=== PATIENT | male | born 1960 | race African-American/Black ===

== ENCOUNTER 2021-03-04 11:24 | Inpatient (IN) | payer MEDICARE, MEDICAID ==
[~2021-03-04] VITALS: Ht 182.9 cm; Wt 98.9 kg
[2021-03-04] MEDS ORDERED: LEVETIRACETAM 500 MG in SODIUM CHLORIDE 0.9% 100 ML IV STA (12:09)
[2021-03-04 12:11] LABS: BG BASE EXCESS -7.7 mmol/L (-2.0-2.0); BG CARBOXYHEMOGLOBIN 0.3 % (0.5-1.5); BG HCO3 ACT 18.5 mmol/L (22.0-26.0); BG METHEMOGLOBIN 0.1 % (0.0-1.5); BG OXYHEMOGLOBIN 98.6 % (94.0-97.0); BG PCO2 39.9 mmHg (35.0-45.0); BG PH 7.283 (7.350-7.450); BG PO2 189.6 mmHg (75.0-100.0); BG SAMPLE SITE RIGHT BRACHIAL; BG TOTAL HEMOGLOBIN 12.9 g/dL (12.0-18.0); BG VENT MODE MASK - NRB
[2021-03-04] MEDS ORDERED: MIDAZOLAM 100MG/100ML PREMIX IV PRN (12:30)
[2021-03-04] MEDS ORDERED: MIDAZOLAM HCL 100 MG in DEXT 5% WATER 80 ML IV ONE (12:30)
[2021-03-04] MEDS ORDERED: LEVETIRACETAM 500MG PREMIX 100 ML IV NR (12:33)
[2021-03-04 12:44] LABS: CHLORIDE 109 mEq/L (98-107)
[2021-03-04 12:48] LABS: ETHANOL BLOOD < 10 mg/dL
[2021-03-04 12:50] LABS: HEMOGLOBIN. 9.9 g/dL (14.0-18.0); MEAN CORPUSCULAR HEMOGLOBIN 30.1 pg (28.0-32.0); MEAN CORPUSCULAR VOLUME 94.5 fL (80.0-94.0); MEAN PLATELET VOLUME 8.6 fl (7.4-10.4); PLATELET 216 x1000/uL (130-400); RED BLOOD CELL COUNT 3.28 mill/uL (4.7-6.1); RED CELL DISTRIBUTION WIDTH 14.4 % (11.6-14.6)
[2021-03-04 12:52] LABS: CREATINE KINASE 525 IU/L (39-308)
[2021-03-04 13:33] LABS: PLATELET ESTIMATE NORMAL
[2021-03-04 13:43] LABS: CLARITY URINE CLEAR (CLEAR); COLOR URINE YELLOW (YELLOW); PROTEIN URINE 1+ (NEGATIVE); SPECIFIC GRAVITY URINE 1.016 (1.005-1.030)
[2021-03-04 13:44] LABS: KETONES URINE TRACE (NEGATIVE)
[2021-03-04] MEDS ORDERED: LORAZEPAM 2MG/ML CPJ IV ONE (13:45)
[2021-03-04 13:46] LABS: *AMPHETAMINES SCREEN URINE NEGATIVE (NEGATIVE); *BARBITURATES SCREEN URINE NEGATIVE (NEGATIVE); *BENZODIAZEPINES SCREEN URINE PRESUMTIVE POSITIVE (NEGATIVE); *COCAINE SCREEN URINE NEGATIVE (NEGATIVE)
[2021-03-04 13:48] LABS: CANNABINOID URINE SCREEN NEGATIVE (NEGATIVE); METHADONE URINE SCREEN NEGATIVE (NEGATIVE); OPIATES URINE SCREEN NEGATIVE (NEGATIVE); PHENCYCLIDINE URINE SCREEN NEGATIVE (NEGATIVE)
[2021-03-04 13:54] LABS: LEUKOCYTE ESTERASE URINE NEGATIVE (NEGATIVE); NITRITE URINE NEGATIVE (NEGATIVE); OCCULT BLOOD URINE 1+ (NEGATIVE)
[2021-03-04 14:16] LABS: BG BASE EXCESS -6.5 mmol/L (-2.0-2.0); BG CARBOXYHEMOGLOBIN 0.3 % (0.5-1.5); BG FRACTION INSPIRED OXYGEN 100; BG HCO3 ACT 20.7 mmol/L (22.0-26.0); BG METHEMOGLOBIN 0.1 % (0.0-1.5); BG OXYHEMOGLOBIN 97.6 % (94.0-97.0); BG PCO2 48.6 mmHg (35.0-45.0); BG PH 7.247 (7.350-7.450); BG PO2 133.5 mmHg (75.0-100.0); BG SAMPLE SITE RIGHT RADIAL; BG TOTAL HEMOGLOBIN 11.3 g/dL (12.0-18.0); BG TOTAL RESPIRATORY RATE 17 b/min; BG VENT MODE VENT - AC
[2021-03-04] MEDS ORDERED: FENTANYL CITRATE/PF 500 MCG in SODIUM CHLORIDE 0.9% 40 ML IV PRN (15:45)
[2021-03-04] MEDS ORDERED: HALOPERIDOL LACTATE 5MG/ML VIAL IM NR (16:00)
[2021-03-04] MEDS ORDERED: FENTANYL CITRATE 2,500 MCG in SODIUM CHLORIDE 0.9% 200 ML IV PRN (16:00)
[2021-03-04] MEDS ORDERED: IPRATROPIUM/ALBUTEROL 0.5-3(2.5)MG/3ML NEB HHN PRN (16:15)
[2021-03-04] MEDS ORDERED: CEFTRIAXONE 1 G PREMIX 50 ML IV NR (16:33)
[2021-03-04] MEDS ORDERED: AZITHROMYCIN 500MG/250ML 250 ML IV NR (16:34)
[2021-03-04] MEDS: IPRATROPIUM/ALBUTEROL 0.5-3(2.5)MG/3ML NEB HHN SCH (20:53)
[2021-03-04] MEDS: LEVETIRACETAM 500MG PREMIX 100 ML IV SCH (21:04)
[2021-03-04] MEDS: FAMOTIDINE 20MG TABLET PO SCH (21:13)
[2021-03-05] VITALS (46 sets, daily range): BP systolic 91–147; BP diastolic 52–99
[2021-03-05] MEDS: IPRATROPIUM/ALBUTEROL 0.5-3(2.5)MG/3ML NEB HHN SCH ×7 (00:56→23:46)
[2021-03-05 08:54] LABS: HEMATOCRIT. 23.6 % (42.0-52.0); HEMOGLOBIN. 7.8 g/dL (14.0-18.0); MEAN CORPUSCULAR VOLUME 94.4 fL (80.0-94.0); MEAN PLATELET VOLUME 8.9 fl (7.4-10.4); PLATELET 172 x1000/uL (130-400); RED CELL DISTRIBUTION WIDTH 14.6 % (11.6-14.6)
[2021-03-05 08:58] LABS: CHLORIDE 110 mEq/L (98-107)
[2021-03-05 09:14] LABS: BG BASE EXCESS -4.3 mmol/L (-2.0-2.0); BG CARBOXYHEMOGLOBIN 0.3 % (0.5-1.5); BG DEOXYHEMOGLOBIN 0.7 % (0.0-5.0); BG FRACTION INSPIRED OXYGEN 80; BG HCO3 ACT 20.1 mmol/L (22.0-26.0); BG METHEMOGLOBIN 0.3 % (0.0-1.5); BG OXYGEN SATURATION 99.3 % (92.0-98.5); BG OXYHEMOGLOBIN 98.7 % (94.0-97.0); BG PCO2 34.5 mmHg (35.0-45.0); BG PH 7.384 (7.350-7.450); BG PO2 257.6 mmHg (75.0-100.0); BG SAMPLE SITE RIGHT RADIAL; BG TOTAL HEMOGLOBIN 10.6 g/dL (12.0-18.0); BG VENT MODE VENT - AC
[2021-03-05] MEDS: LEVETIRACETAM 500MG PREMIX 100 ML IV SCH ×2 (09:58→22:37)
[2021-03-05] MEDS ORDERED: MIDAZOLAM HCL 100 MG in SODIUM CHLORIDE 0.9% 80 ML IV PRN (12:15)
[2021-03-05] MEDS ORDERED: LACO100T2 PO (12:45)
[2021-03-05] MEDS ORDERED: QUET100T34 PO (12:45)
[2021-03-05] MEDS ORDERED: PHEN100C4 PO (12:45)
[2021-03-05] MEDS ORDERED: LEVO75TA7 PO (12:45)
[2021-03-05] MEDS ORDERED: VANCOMYCIN 1500MG in DEXTROSE 5% WATER 250ML IV NR ×2 (13:00→16:00)
[2021-03-05] MEDS ORDERED: FLUMAZENIL 0.1 MG/ML 5ML VIAL IV NR (15:30)
[2021-03-05] MEDS: PIPERACILLIN/TAZOBACTAM 3.375 G in DEXTROSE 5% WATER 50 ML IV SCH ×2 (15:52→21:19)
[2021-03-05 15:58] LABS: PLATELET ESTIMATE NORMAL
[2021-03-05] MEDS ORDERED: CEFTRIAXONE 1,000 MG in DEXTROSE 5% WATER 50 ML IV SCH (16:00)
[2021-03-05] MEDS ORDERED: AZITHROMYCIN 500 MG in DEXT 5% WATER 250 ML IV SCH (17:00)
[2021-03-05] MEDS ORDERED: PHENYTOIN SODIUM 100MG/2ML VIAL IV NR (19:15)
[2021-03-05] MEDS ORDERED: LORAZEPAM 2MG/ML CPJ IV PRN (19:45)
[2021-03-05] MEDS: DEXT 5%/LACTATED RINGERS 1,000 ML IV SCH (20:07)
[2021-03-05] MEDS: FAMOTIDINE 20MG TABLET PO SCH (20:41)
[2021-03-05] MEDS: FENTANYL CITRATE/PF 2,500 MCG in SODIUM CHLORIDE 0.9% 200 ML IV PRN (22:22)
[2021-03-05 23:06] LABS: CARBAMAZEPINE < 0.5 ug/mL (4-12); PHENOBARBITAL < 2.1 ug/mL (15.0-40.0); VALPROIC ACID < 3.0 ug/mL (50-100)
[2021-03-06] VITALS (82 sets, daily range): BP systolic 99–158; BP diastolic 56–79
[2021-03-06] MEDS: IPRATROPIUM/ALBUTEROL 0.5-3(2.5)MG/3ML NEB HHN SCH ×5 (02:59→20:29)
[2021-03-06] MEDS: VANCOMYCIN 750 MG in DEXT 5% WATER 250 ML IV SCH ×2 (04:24→17:27)
[2021-03-06] MEDS: PIPERACILLIN/TAZOBACTAM 3.375 G in DEXTROSE 5% WATER 50 ML IV SCH ×3 (05:44→21:22)
[2021-03-06] MEDS: DEXT 5%/LACTATED RINGERS 1,000 ML IV SCH ×2 (05:46→15:30)
[2021-03-06 06:03] LABS: BASOPHILS % 0.2 % (0.0-2.0); EOSINOPHILS % 0.3 % (0.0-5.0); HEMATOCRIT. 29.3 % (42.0-52.0); HEMOGLOBIN. 9.8 g/dL (14.0-18.0); LYMPHOCYTES % 11.1 % (20.0-50.0); MEAN CORPUSCULAR VOLUME 92.6 fL (80.0-94.0); MEAN PLATELET VOLUME 9.7 fl (7.4-10.4); MONOCYTES % 11.9 % (2.0-8.0); NEUTROPHILS % 76.5 % (40.0-76.0); PLATELET 220 x1000/uL (130-400); RED BLOOD CELL COUNT 3.17 mill/uL (4.7-6.1)
[2021-03-06 08:47] LABS: BG BASE EXCESS -2.4 mmol/L (-2.0-2.0); BG DEOXYHEMOGLOBIN 1.7 % (0.0-5.0); BG HCO3 ACT 22.2 mmol/L (22.0-26.0); BG METHEMOGLOBIN 0.3 % (0.0-1.5); BG OXYGEN SATURATION 98.3 % (92.0-98.5); BG PCO2 37.4 mmHg (35.0-45.0); BG PH 7.392 (7.350-7.450); BG PO2 114.7 mmHg (75.0-100.0); BG SAMPLE SITE RIGHT RADIAL; BG TOTAL HEMOGLOBIN 9.7 g/dL (12.0-18.0); BG VENT MODE VENT - AC
[2021-03-06] MEDS: LEVETIRACETAM 500MG PREMIX 100 ML IV SCH ×2 (08:54→20:29)
[2021-03-06] MEDS ORDERED: PHENYTOIN SODIUM 100MG/2ML VIAL IV SCH (09:00)
[2021-03-06] MEDS: PHENYTOIN SODIUM 100MG/2ML VIAL IV SCH (19:43)
[2021-03-06] MEDS: FAMOTIDINE 20MG TABLET PO SCH (20:28)
[2021-03-06 23:11] LABS: CREATINE KINASE 2415 IU/L (39-308)
[2021-03-07] VITALS (85 sets, daily range): BP systolic 115–173; BP diastolic 56–126
[2021-03-07] MEDS: IPRATROPIUM/ALBUTEROL 0.5-3(2.5)MG/3ML NEB HHN SCH ×6 (00:09→21:13)
[2021-03-07] MEDS: DEXT 5%/LACTATED RINGERS 1,000 ML IV SCH ×3 (02:05→21:50)
[2021-03-07 03:19] LABS: BASOPHILS % 0.3 % (0.0-2.0); EOSINOPHILS % 0.4 % (0.0-5.0); HEMATOCRIT. 26.2 % (42.0-52.0); HEMOGLOBIN. 8.8 g/dL (14.0-18.0); LYMPHOCYTES % 11.7 % (20.0-50.0); MEAN CORPUSCULAR VOLUME 92.2 fL (80.0-94.0); MEAN PLATELET VOLUME 8.1 fl (7.4-10.4); MONOCYTES % 10.7 % (2.0-8.0); NEUTROPHILS % 76.9 % (40.0-76.0); PLATELET 193 x1000/uL (130-400); RED BLOOD CELL COUNT 2.84 mill/uL (4.7-6.1); RED CELL DISTRIBUTION WIDTH 14.3 % (11.6-14.6)
[2021-03-07 03:27] LABS: CHLORIDE 113 mEq/L (98-107)
[2021-03-07] MEDS: VANCOMYCIN 750 MG in DEXT 5% WATER 250 ML IV SCH ×2 (05:04→17:50)
[2021-03-07] MEDS: PIPERACILLIN/TAZOBACTAM 3.375 G in DEXTROSE 5% WATER 50 ML IV SCH ×3 (05:05→21:49)
[2021-03-07] MEDS: FENTANYL CITRATE/PF 2,500 MCG in SODIUM CHLORIDE 0.9% 200 ML IV PRN (05:06)
[2021-03-07] MEDS: LEVETIRACETAM 500MG PREMIX 100 ML IV SCH ×2 (08:37→21:49)
[2021-03-07] MEDS: PHENYTOIN SODIUM 100MG/2ML VIAL IV SCH ×2 (08:37→17:17)
[2021-03-07 11:41] LABS: BG BASE EXCESS 4.7 mmol/L (-2.0-2.0); BG CARBOXYHEMOGLOBIN 0.3 % (0.5-1.5); BG DEOXYHEMOGLOBIN 4.8 % (0.0-5.0); BG FRACTION INSPIRED OXYGEN 40; BG HCO3 ACT 30.3 mmol/L (22.0-26.0); BG METHEMOGLOBIN 0.4 % (0.0-1.5); BG OXYGEN SATURATION 95.2 % (92.0-98.5); BG OXYHEMOGLOBIN 94.5 % (94.0-97.0); BG PCO2 50.8 mmHg (35.0-45.0); BG PH 7.394 (7.350-7.450); BG PO2 77.8 mmHg (75.0-100.0); BG SAMPLE SITE RIGHT RADIAL; BG TOTAL HEMOGLOBIN 9.9 g/dL (12.0-18.0); BG VENT MODE VENT - CPAP
[2021-03-07] MEDS: FAMOTIDINE 20MG TABLET PO SCH (21:49)
[2021-03-07] MEDS: ACETAMINOPHEN 650MG/20.3ML UDC NG PRN (21:49)
[2021-03-08] VITALS (73 sets, daily range): BP systolic 124–188; BP diastolic 65–128
[2021-03-08] MEDS: IPRATROPIUM/ALBUTEROL 0.5-3(2.5)MG/3ML NEB HHN SCH ×6 (01:03→21:40)
[2021-03-08] MEDS: ACETAMINOPHEN 650MG/20.3ML UDC NG PRN (05:27)
[2021-03-08] MEDS: PIPERACILLIN/TAZOBACTAM 3.375 G in DEXTROSE 5% WATER 50 ML IV SCH ×3 (05:52→21:05)
[2021-03-08] MEDS: VANCOMYCIN 750 MG in DEXT 5% WATER 250 ML IV SCH ×2 (05:52→17:43)
[2021-03-08 06:00] LABS: BASOPHILS % 0.5 % (0.0-2.0); EOSINOPHILS % 1.1 % (0.0-5.0); HEMATOCRIT. 26.8 % (42.0-52.0); HEMOGLOBIN. 8.3 g/dL (14.0-18.0); LYMPHOCYTES % 11.3 % (20.0-50.0); MEAN CORPUSCULAR HEMOGLOBIN 28.8 pg (28.0-32.0); MEAN PLATELET VOLUME 8.9 fl (7.4-10.4); MONOCYTES % 11.3 % (2.0-8.0); NEUTROPHILS % 75.8 % (40.0-76.0); PLATELET 215 x1000/uL (130-400); RED BLOOD CELL COUNT 2.88 mill/uL (4.7-6.1); RED CELL DISTRIBUTION WIDTH 14.3 % (11.6-14.6)
[2021-03-08 06:04] LABS: CHLORIDE 113 mEq/L (98-107)
[2021-03-08 08:31] LABS: BG BASE EXCESS 3.3 mmol/L (-2.0-2.0); BG CARBOXYHEMOGLOBIN 0.3 % (0.5-1.5); BG DEOXYHEMOGLOBIN 3.7 % (0.0-5.0); BG HCO3 ACT 27.9 mmol/L (22.0-26.0); BG METHEMOGLOBIN 0.4 % (0.0-1.5); BG OXYGEN SATURATION 96.3 % (92.0-98.5); BG OXYHEMOGLOBIN 95.6 % (94.0-97.0); BG PCO2 42.6 mmHg (35.0-45.0); BG PH 7.434 (7.350-7.450); BG PO2 83.9 mmHg (75.0-100.0); BG SAMPLE SITE RIGHT RADIAL; BG TOTAL HEMOGLOBIN 9.6 g/dL (12.0-18.0); BG VENT MODE COOL AEROSOL
[2021-03-08] MEDS: PHENYTOIN SODIUM 100MG/2ML VIAL IV SCH ×2 (09:04→17:02)
[2021-03-08] MEDS: LEVETIRACETAM 500MG PREMIX 100 ML IV SCH ×2 (09:05→20:23)
[2021-03-08] MEDS: GUAIFENESIN/CODEINE 200-20MG/10ML UDC PO PRN (09:05)
[2021-03-08] MEDS: DEXT 5%/LACTATED RINGERS 1,000 ML IV SCH ×2 (12:08→20:17)
[2021-03-08] MEDS: FAMOTIDINE 20MG TABLET PO SCH (20:17)
[2021-03-09] VITALS (10 sets, daily range): BP systolic 129–153; BP diastolic 60–84
[2021-03-09] MEDS: IPRATROPIUM/ALBUTEROL 0.5-3(2.5)MG/3ML NEB HHN SCH ×6 (01:40→15:33)
[2021-03-09] MEDS: VANCOMYCIN 750 MG in DEXT 5% WATER 250 ML IV SCH ×2 (05:25→17:32)
[2021-03-09] MEDS: DEXT 5%/LACTATED RINGERS 1,000 ML IV SCH ×2 (05:25→13:49)
[2021-03-09] MEDS: PIPERACILLIN/TAZOBACTAM 3.375 G in DEXTROSE 5% WATER 50 ML IV SCH ×3 (07:07→21:40)
[2021-03-09 07:18] LABS: CHLORIDE 111 mEq/L (98-107)
[2021-03-09 07:24] LABS: BASOPHILS % 0.7 % (0.0-2.0); EOSINOPHILS % 2.9 % (0.0-5.0); HEMATOCRIT. 27.7 % (42.0-52.0); HEMOGLOBIN. 9.1 g/dL (14.0-18.0); LYMPHOCYTES % 12.2 % (20.0-50.0); MEAN CORPUSCULAR HEMOGLOBIN 30.3 pg (28.0-32.0); MEAN CORPUSCULAR VOLUME 92.7 fL (80.0-94.0); MEAN PLATELET VOLUME 8.6 fl (7.4-10.4); MONOCYTES % 12.6 % (2.0-8.0); NEUTROPHILS % 71.6 % (40.0-76.0); PLATELET 216 x1000/uL (130-400); RED BLOOD CELL COUNT 2.99 mill/uL (4.7-6.1); RED CELL DISTRIBUTION WIDTH 14.1 % (11.6-14.6)
[2021-03-09 07:31] LABS: VANCOMYCIN TROUGH 22.3 ug/mL (5.0-10.0)
[2021-03-09 07:43] LABS: CREATINE KINASE 1062 IU/L (39-308)
[2021-03-09] MEDS: PHENYTOIN SODIUM 100MG/2ML VIAL IV SCH ×2 (09:15→16:25)
[2021-03-09] MEDS: LEVETIRACETAM 500MG PREMIX 100 ML IV SCH ×2 (09:16→20:41)
[2021-03-09] MEDS: GUAIFENESIN/CODEINE 200-20MG/10ML UDC PO PRN (13:48)
[2021-03-09] MEDS: FAMOTIDINE 20MG TABLET PO SCH (20:42)
[2021-03-10] VITALS (9 sets, daily range): BP systolic 124–151; BP diastolic 56–94
[2021-03-10] MEDS: DEXT 5%/LACTATED RINGERS 1,000 ML IV SCH (02:28)
[2021-03-10] MEDS: VANCOMYCIN 750 MG in DEXT 5% WATER 250 ML IV SCH (05:02)
[2021-03-10] MEDS: ACETAMINOPHEN 650MG/20.3ML UDC NG PRN (05:03)
[2021-03-10 06:50] LABS: BASOPHILS % 0.5 % (0.0-2.0); EOSINOPHILS % 4.1 % (0.0-5.0); HEMATOCRIT. 26.6 % (42.0-52.0); HEMOGLOBIN. 8.7 g/dL (14.0-18.0); LYMPHOCYTES % 13.8 % (20.0-50.0); MEAN CORPUSCULAR HEMOGLOBIN 30.3 pg (28.0-32.0); MEAN CORPUSCULAR VOLUME 92.6 fL (80.0-94.0); MEAN PLATELET VOLUME 8.9 fl (7.4-10.4); MONOCYTES % 12.8 % (2.0-8.0); NEUTROPHILS % 68.8 % (40.0-76.0); PLATELET 244 x1000/uL (130-400); RED BLOOD CELL COUNT 2.88 mill/uL (4.7-6.1); RED CELL DISTRIBUTION WIDTH 14.1 % (11.6-14.6)
[2021-03-10] MEDS: PIPERACILLIN/TAZOBACTAM 3.375 G in DEXTROSE 5% WATER 50 ML IV SCH ×3 (06:56→22:04)
[2021-03-10 07:32] LABS: CHLORIDE 111 mEq/L (98-107)
[2021-03-10 07:41] LABS: CREATINE KINASE 635 IU/L (39-308)
[2021-03-10] MEDS: LEVETIRACETAM 500MG PREMIX 100 ML IV SCH ×2 (08:30→21:07)
[2021-03-10] MEDS: PHENYTOIN SODIUM 100MG/2ML VIAL IV SCH ×2 (08:30→15:45)
[2021-03-10] MEDS ORDERED: LIDOCAINE HCL 1% 20ML VIAL (Pyxis) INJ ONE (11:04)
[2021-03-10] MEDS: IPRATROPIUM/ALBUTEROL 0.5-3(2.5)MG/3ML NEB HHN SCH ×3 (12:45→22:05)
[2021-03-10] MEDS: VANCOMYCIN 1G PREMIX 200 ML IV SCH ×2 (15:34→22:03)
[2021-03-10] MEDS ORDERED: HALOPERIDOL LACTATE 5MG/ML VIAL IM NR (15:45)
[2021-03-10] MEDS: FAMOTIDINE 20MG TABLET PO SCH (21:07)
[2021-03-11] VITALS (17 sets, daily range): BP systolic 99–173; BP diastolic 46–97
[2021-03-11] MEDS: DAPTOMYCIN 500 MG in SODIUM CHLORIDE 0.9% 50 ML IV SCH (01:31)
[2021-03-11] MEDS: IPRATROPIUM/ALBUTEROL 0.5-3(2.5)MG/3ML NEB HHN SCH ×4 (02:19→21:35)
[2021-03-11 07:36] LABS: CHLORIDE 110 mEq/L (98-107)
[2021-03-11 07:40] LABS: BASOPHILS % 0.7 % (0.0-2.0); EOSINOPHILS % 4.7 % (0.0-5.0); HEMATOCRIT. 26.8 % (42.0-52.0); LYMPHOCYTES % 20.1 % (20.0-50.0); MEAN CORPUSCULAR HEMOGLOBIN 30.8 pg (28.0-32.0); MEAN CORPUSCULAR VOLUME 91.2 fL (80.0-94.0); MONOCYTES % 12.9 % (2.0-8.0); NEUTROPHILS % 61.6 % (40.0-76.0); RED BLOOD CELL COUNT 2.93 mill/uL (4.7-6.1); RED CELL DISTRIBUTION WIDTH 13.8 % (11.6-14.6)
[2021-03-11] MEDS: LEVETIRACETAM 500MG PREMIX 100 ML IV SCH ×2 (07:52→21:32)
[2021-03-11] MEDS: PHENYTOIN SODIUM 100MG/2ML VIAL IV SCH ×2 (07:52→16:50)
[2021-03-11] MEDS ORDERED: HALOPERIDOL LACTATE 5MG/ML VIAL IM NR ×2 (08:00→19:15)
[2021-03-11 08:33] LABS: PLATELET ESTIMATE NORMAL
[2021-03-11 12:41] LABS: MEAN PLATELET VOLUME 9.1 fl (7.4-10.4); PLATELET 254 x1000/uL (130-400)
[2021-03-11] MEDS: ACETAMINOPHEN 650MG/20.3ML UDC NG PRN (17:56)
[2021-03-11] MEDS ORDERED: HALOPERIDOL LACTATE 5MG/ML VIAL IM PRN (19:30)
[2021-03-11] MEDS: CEFEPIME 2,000 MG in DEXT 5% WATER 100 ML IV SCH (21:32)
[2021-03-11] MEDS: FAMOTIDINE 20MG TABLET PO SCH (21:32)
[2021-03-12] VITALS (21 sets, daily range): BP systolic 98–161; BP diastolic 36–91
[2021-03-12] MEDS: DAPTOMYCIN 500 MG in SODIUM CHLORIDE 0.9% 50 ML IV SCH (01:11)
[2021-03-12 07:11] LABS: CHLORIDE 115 mEq/L (98-107)
[2021-03-12 07:15] LABS: BASOPHILS % 0.8 % (0.0-2.0); EOSINOPHILS % 3.5 % (0.0-5.0); HEMATOCRIT. 28.8 % (42.0-52.0); HEMOGLOBIN. 9.9 g/dL (14.0-18.0); LYMPHOCYTES % 18.4 % (20.0-50.0); MEAN CORPUSCULAR HEMOGLOBIN 31.2 pg (28.0-32.0); MEAN CORPUSCULAR VOLUME 90.9 fL (80.0-94.0); MEAN PLATELET VOLUME 8.5 fl (7.4-10.4); MONOCYTES % 11.8 % (2.0-8.0); NEUTROPHILS % 65.5 % (40.0-76.0); PLATELET 292 x1000/uL (130-400); RED BLOOD CELL COUNT 3.17 mill/uL (4.7-6.1); RED CELL DISTRIBUTION WIDTH 14.3 % (11.6-14.6)
[2021-03-12] MEDS: LEVETIRACETAM 500MG PREMIX 100 ML IV SCH (08:28)
[2021-03-12] MEDS: PHENYTOIN SODIUM 100MG/2ML VIAL IV SCH (08:29)
[2021-03-12] MEDS: CEFEPIME 2,000 MG in DEXT 5% WATER 100 ML IV SCH ×2 (09:01→20:53)
[2021-03-12] MEDS: IPRATROPIUM/ALBUTEROL 0.5-3(2.5)MG/3ML NEB HHN SCH ×3 (09:50→20:07)
[2021-03-12] MEDS ORDERED: PHENYTOIN SODIUM EXTENDED 100MG CAPSULE PO SCH (15:15)
[2021-03-12] MEDS: SODIUM CHLORIDE 0.45% 1,000 ML IV SCH (17:16)
[2021-03-12] MEDS: FAMOTIDINE 20MG TABLET PO SCH (20:52)
[2021-03-12] MEDS: LEVETIRACETAM 500MG TABLET PO SCH (20:52)
[2021-03-12] MEDS: PHENYTOIN SODIUM EXTENDED 100MG CAPSULE PO SCH (20:52)
[2021-03-13] VITALS (18 sets, daily range): BP systolic 108–151; BP diastolic 45–101
[2021-03-13] MEDS: DAPTOMYCIN 500 MG in SODIUM CHLORIDE 0.9% 50 ML IV SCH (01:03)
[2021-03-13] MEDS: IPRATROPIUM/ALBUTEROL 0.5-3(2.5)MG/3ML NEB HHN SCH ×4 (05:08→22:09)
[2021-03-13 07:35] LABS: BASOPHILS % 0.6 % (0.0-2.0); EOSINOPHILS % 3.1 % (0.0-5.0); HEMATOCRIT. 29.2 % (42.0-52.0); HEMOGLOBIN. 9.9 g/dL (14.0-18.0); MEAN CORPUSCULAR HEMOGLOBIN 31.1 pg (28.0-32.0); MEAN CORPUSCULAR VOLUME 91.2 fL (80.0-94.0); MEAN PLATELET VOLUME 8.2 fl (7.4-10.4); MONOCYTES % 7.4 % (2.0-8.0); NEUTROPHILS % 74.9 % (40.0-76.0); PLATELET 313 x1000/uL (130-400)
[2021-03-13 07:52] LABS: CHLORIDE 113 mEq/L (98-107)
[2021-03-13] MEDS: PHENYTOIN SODIUM EXTENDED 100MG CAPSULE PO SCH ×2 (08:16→21:50)
[2021-03-13] MEDS: LEVETIRACETAM 500MG TABLET PO SCH ×2 (08:16→21:50)
[2021-03-13] MEDS: CEFEPIME 2,000 MG in DEXT 5% WATER 100 ML IV SCH (09:11)
[2021-03-13] MEDS ORDERED: LACTULOSE 20G/30ML UDC PO NR (11:00)
[2021-03-13] MEDS: SODIUM CHLORIDE 0.45% 1,000 ML IV SCH (14:02)
[2021-03-13] MEDS: AMPICILLIN SOD/SULBACTAM NA 3 G in SODIUM CHLORIDE 0.9% 100 ML IV SCH ×2 (16:26→21:50)
[2021-03-13] MEDS: COLISTIMETHATE SODIUM 150MG/VIAL INH SCH ×2 (21:00→22:22)
[2021-03-13] MEDS: FAMOTIDINE 20MG TABLET PO SCH (21:50)
[2021-03-14] VITALS (13 sets, daily range): BP systolic 87–156; BP diastolic 39–82
[2021-03-14] MEDS: DAPTOMYCIN 500 MG in SODIUM CHLORIDE 0.9% 50 ML IV SCH (00:46)
[2021-03-14] MEDS: AMPICILLIN SOD/SULBACTAM NA 3 G in SODIUM CHLORIDE 0.9% 100 ML IV SCH ×4 (04:39→21:48)
[2021-03-14] MEDS: IPRATROPIUM/ALBUTEROL 0.5-3(2.5)MG/3ML NEB HHN SCH ×4 (05:33→20:45)
[2021-03-14 07:53] LABS: EOSINOPHILS % 3.9 % (0.0-5.0); HEMATOCRIT. 30.5 % (42.0-52.0); HEMOGLOBIN. 10.3 g/dL (14.0-18.0); LYMPHOCYTES % 18.7 % (20.0-50.0); MEAN CORPUSCULAR HEMOGLOBIN 30.7 pg (28.0-32.0); MEAN CORPUSCULAR VOLUME 90.7 fL (80.0-94.0); MEAN PLATELET VOLUME 8.1 fl (7.4-10.4); NEUTROPHILS % 69.4 % (40.0-76.0); PLATELET 345 x1000/uL (130-400); RED BLOOD CELL COUNT 3.36 mill/uL (4.7-6.1)
[2021-03-14 07:55] LABS: CHLORIDE 110 mEq/L (98-107)
[2021-03-14] MEDS: ACETAMINOPHEN 650MG/20.3ML UDC NG PRN (07:58)
[2021-03-14] MEDS: LEVETIRACETAM 500MG TABLET PO SCH ×2 (07:58→20:17)
[2021-03-14] MEDS: PHENYTOIN SODIUM EXTENDED 100MG CAPSULE PO SCH ×2 (07:58→20:17)
[2021-03-14] MEDS: COLISTIMETHATE SODIUM 150MG/VIAL INH SCH ×2 (09:05→20:45)
[2021-03-14] MEDS: SODIUM CHLORIDE 0.45% 1,000 ML IV SCH (10:01)
[2021-03-14 15:06] LABS: CREATINE KINASE 194 IU/L (39-308)
[2021-03-14] MEDS: FAMOTIDINE 20MG TABLET PO SCH (20:17)
[2021-03-15] VITALS (12 sets, daily range): BP systolic 110–145; BP diastolic 36–92
[2021-03-15] MEDS: DAPTOMYCIN 500 MG in SODIUM CHLORIDE 0.9% 50 ML IV SCH (02:17)
[2021-03-15] MEDS: IPRATROPIUM/ALBUTEROL 0.5-3(2.5)MG/3ML NEB HHN SCH ×4 (03:08→21:16)
[2021-03-15] MEDS: AMPICILLIN SOD/SULBACTAM NA 3 G in SODIUM CHLORIDE 0.9% 100 ML IV SCH ×4 (04:27→21:17)
[2021-03-15] MEDS: SODIUM CHLORIDE 0.45% 1,000 ML IV SCH (04:32)
[2021-03-15] MEDS: PHENYTOIN SODIUM EXTENDED 100MG CAPSULE PO SCH ×2 (09:05→21:22)
[2021-03-15] MEDS: LEVETIRACETAM 500MG TABLET PO SCH ×2 (09:05→21:22)
[2021-03-15] MEDS: COLISTIMETHATE SODIUM 150MG/VIAL INH SCH (21:16)
[2021-03-15] MEDS: FAMOTIDINE 20MG TABLET PO SCH (21:22)
[2021-03-16] VITALS (12 sets, daily range): BP systolic 98–131; BP diastolic 55–81
[2021-03-16] MEDS: IPRATROPIUM/ALBUTEROL 0.5-3(2.5)MG/3ML NEB HHN SCH ×5 (01:01→21:08)
[2021-03-16] MEDS: DAPTOMYCIN 500 MG in SODIUM CHLORIDE 0.9% 50 ML IV SCH (01:25)
[2021-03-16] MEDS: SODIUM CHLORIDE 0.45% 1,000 ML IV SCH ×2 (01:26→20:49)
[2021-03-16] MEDS: AMPICILLIN SOD/SULBACTAM NA 3 G in SODIUM CHLORIDE 0.9% 100 ML IV SCH ×4 (05:08→21:00)
[2021-03-16] MEDS: LEVETIRACETAM 500MG TABLET PO SCH ×2 (09:05→20:50)
[2021-03-16] MEDS: PHENYTOIN SODIUM EXTENDED 100MG CAPSULE PO SCH ×2 (09:05→20:50)
[2021-03-16] MEDS: COLISTIMETHATE SODIUM 150MG/VIAL INH SCH ×2 (09:10→21:16)
[2021-03-16 14:52] LABS: BG BASE EXCESS 2.4 mmol/L (-2.0-2.0); BG CARBOXYHEMOGLOBIN 0.2 % (0.5-1.5); BG DEOXYHEMOGLOBIN 4.8 % (0.0-5.0); BG FRACTION INSPIRED OXYGEN 21; BG HCO3 ACT 27.3 mmol/L (22.0-26.0); BG METHEMOGLOBIN 0.2 % (0.0-1.5); BG OXYGEN SATURATION 95.2 % (92.0-98.5); BG OXYHEMOGLOBIN 94.8 % (94.0-97.0); BG PCO2 43.6 mmHg (35.0-45.0); BG PH 7.414 (7.350-7.450); BG PO2 77.6 mmHg (75.0-100.0); BG SAMPLE SITE RIGHT BRACHIAL; BG TOTAL HEMOGLOBIN 10.7 g/dL (12.0-18.0); BG VENT MODE ROOM AIR
[2021-03-16] MEDS: FAMOTIDINE 20MG TABLET PO SCH (20:50)
[2021-03-17] VITALS (12 sets, daily range): BP systolic 101–142; BP diastolic 50–89
[2021-03-17] MEDS: DAPTOMYCIN 500 MG in SODIUM CHLORIDE 0.9% 50 ML IV SCH (02:47)
[2021-03-17] MEDS: AMPICILLIN SOD/SULBACTAM NA 3 G in SODIUM CHLORIDE 0.9% 100 ML IV SCH ×4 (04:25→22:01)
[2021-03-17] MEDS: IPRATROPIUM/ALBUTEROL 0.5-3(2.5)MG/3ML NEB HHN SCH ×4 (04:38→22:15)
[2021-03-17] MEDS: COLISTIMETHATE SODIUM 150MG/VIAL INH SCH ×2 (07:58→21:00)
[2021-03-17] MEDS: LEVETIRACETAM 500MG TABLET PO SCH ×2 (09:15→22:00)
[2021-03-17] MEDS: PHENYTOIN SODIUM EXTENDED 100MG CAPSULE PO SCH ×2 (09:15→22:00)
[2021-03-17] MEDS: SODIUM CHLORIDE 0.45% 1,000 ML IV SCH (17:03)
[2021-03-17] MEDS: FAMOTIDINE 20MG TABLET PO SCH (22:00)
[2021-03-18] VITALS (12 sets, daily range): BP systolic 103–155; BP diastolic 54–77
[2021-03-18] MEDS: DAPTOMYCIN 500 MG in SODIUM CHLORIDE 0.9% 50 ML IV SCH (03:15)
[2021-03-18] MEDS: IPRATROPIUM/ALBUTEROL 0.5-3(2.5)MG/3ML NEB HHN SCH ×3 (04:02→21:33)
[2021-03-18] MEDS: AMPICILLIN SOD/SULBACTAM NA 3 G in SODIUM CHLORIDE 0.9% 100 ML IV SCH ×4 (04:34→21:20)
[2021-03-18] MEDS: LEVETIRACETAM 500MG TABLET PO SCH ×2 (09:20→21:20)
[2021-03-18] MEDS: PHENYTOIN SODIUM EXTENDED 100MG CAPSULE PO SCH ×2 (09:20→21:20)
[2021-03-18] MEDS: SODIUM CHLORIDE 0.45% 1,000 ML IV SCH (12:11)
[2021-03-18 15:27] LABS: BASOPHILS % 1.2 % (0.0-2.0); EOSINOPHILS % 2.9 % (0.0-5.0); HEMATOCRIT. 26.6 % (42.0-52.0); LYMPHOCYTES % 24.3 % (20.0-50.0); MEAN CORPUSCULAR HEMOGLOBIN 30.9 pg (28.0-32.0); MEAN CORPUSCULAR VOLUME 91.7 fL (80.0-94.0); MEAN PLATELET VOLUME 8.3 fl (7.4-10.4); MONOCYTES % 7.6 % (2.0-8.0); PLATELET 427 x1000/uL (130-400); RED CELL DISTRIBUTION WIDTH 14.5 % (11.6-14.6)
[2021-03-18 15:47] LABS: CHLORIDE 109 mEq/L (98-107)
[2021-03-18] MEDS: FAMOTIDINE 20MG TABLET PO SCH (21:20)
[2021-03-18] MEDS: COLISTIMETHATE SODIUM 150MG/VIAL INH SCH (21:46)
[2021-03-19] VITALS (12 sets, daily range): BP systolic 97–137; BP diastolic 54–84
[2021-03-19] MEDS: DAPTOMYCIN 500 MG in SODIUM CHLORIDE 0.9% 50 ML IV SCH (01:32)
[2021-03-19] MEDS: LEVETIRACETAM 500MG TABLET PO SCH ×2 (08:51→21:17)
[2021-03-19] MEDS: PHENYTOIN SODIUM EXTENDED 100MG CAPSULE PO SCH ×2 (08:52→21:17)
[2021-03-19] MEDS: IPRATROPIUM/ALBUTEROL 0.5-3(2.5)MG/3ML NEB HHN SCH ×3 (09:10→20:43)
[2021-03-19] MEDS: COLISTIMETHATE SODIUM 150MG/VIAL INH SCH (09:30)
[2021-03-19] MEDS: FAMOTIDINE 20MG TABLET PO SCH (21:17)
[2021-03-20] VITALS (8 sets, daily range): BP systolic 102–147; BP diastolic 46–87
[2021-03-20] MEDS: IPRATROPIUM/ALBUTEROL 0.5-3(2.5)MG/3ML NEB HHN SCH ×4 (02:30→20:17)
[2021-03-20] MEDS: SODIUM CHLORIDE 0.45% 1,000 ML IV SCH (04:38)
[2021-03-20] MEDS: LEVETIRACETAM 500MG TABLET PO SCH ×2 (09:24→21:27)
[2021-03-20] MEDS: PHENYTOIN SODIUM EXTENDED 100MG CAPSULE PO SCH ×2 (09:24→21:27)
[2021-03-20] MEDS: FAMOTIDINE 20MG TABLET PO SCH (21:27)
[2021-03-21] VITALS: BP 108/78
[2021-03-21] MEDS: IPRATROPIUM/ALBUTEROL 0.5-3(2.5)MG/3ML NEB HHN SCH ×4 (00:31→21:10)
[2021-03-21 04:00] VITALS: BP 121/80
[2021-03-21 08:00] VITALS: BP 118/76
[2021-03-21] MEDS: LEVETIRACETAM 500MG TABLET PO SCH ×2 (09:05→22:32)
[2021-03-21] MEDS: PHENYTOIN SODIUM EXTENDED 100MG CAPSULE PO SCH ×2 (09:05→22:29)
[2021-03-21 12:00] VITALS: BP 105/60
[2021-03-21 16:00] VITALS: BP 107/65
[2021-03-21] MEDS: ACETAMINOPHEN 650MG/20.3ML UDC NG PRN (16:34)
[2021-03-21 20:00] VITALS: BP 110/67
[2021-03-21] MEDS: FAMOTIDINE 20MG TABLET PO SCH (22:32)
[2021-03-22] VITALS: BP 128/70
[2021-03-22 04:00] VITALS: BP 123/79
[2021-03-22] MEDS: IPRATROPIUM/ALBUTEROL 0.5-3(2.5)MG/3ML NEB HHN SCH ×3 (04:00→21:55)
[2021-03-22 08:00] VITALS: BP 114/70
[2021-03-22] MEDS: LEVETIRACETAM 500MG TABLET PO SCH ×2 (08:46→20:36)
[2021-03-22] MEDS: PHENYTOIN SODIUM EXTENDED 100MG CAPSULE PO SCH ×2 (08:46→20:36)
[2021-03-22 12:00] VITALS: BP 116/82
[2021-03-22 16:00] VITALS: BP 115/73
[2021-03-22] MEDS: ACETAMINOPHEN 650MG/20.3ML UDC NG PRN (18:09)
[2021-03-22 20:00] VITALS: BP 123/70
[2021-03-22] MEDS: FAMOTIDINE 20MG TABLET PO SCH (20:36)
[2021-03-23] VITALS: BP 106/61
[2021-03-23] MEDS: IPRATROPIUM/ALBUTEROL 0.5-3(2.5)MG/3ML NEB HHN SCH ×4 (02:00→21:04)
[2021-03-23 04:00] VITALS: BP 138/81
[2021-03-23] MEDS: PHENYTOIN SODIUM EXTENDED 100MG CAPSULE PO SCH ×2 (09:07→20:08)
[2021-03-23] MEDS: LEVETIRACETAM 500MG TABLET PO SCH ×2 (09:07→20:08)
[2021-03-23 20:00] VITALS: BP 110/59
[2021-03-23] MEDS: FAMOTIDINE 20MG TABLET PO SCH (20:08)
[2021-03-24] VITALS: BP 145/65
[2021-03-24] MEDS: IPRATROPIUM/ALBUTEROL 0.5-3(2.5)MG/3ML NEB HHN SCH ×2 (02:42→15:41)
[2021-03-24 04:00] VITALS: BP 155/50
[2021-03-24 08:00] VITALS: BP 113/73
[2021-03-24] MEDS: LEVETIRACETAM 500MG TABLET PO SCH ×2 (08:49→20:26)
[2021-03-24] MEDS: PHENYTOIN SODIUM EXTENDED 100MG CAPSULE PO SCH ×2 (08:49→20:26)
[2021-03-24 12:00] VITALS: BP 115/71
[2021-03-24 16:00] VITALS: BP 116/71
[2021-03-24 20:00] VITALS: BP 128/71
[2021-03-24] MEDS: FAMOTIDINE 20MG TABLET PO SCH (20:25)
[2021-03-25] VITALS: BP 118/68
[2021-03-25] MEDS: IPRATROPIUM/ALBUTEROL 0.5-3(2.5)MG/3ML NEB HHN SCH ×3 (00:32→13:46)
[2021-03-25 04:00] VITALS: BP 136/75
[2021-03-25] MEDS: PHENYTOIN SODIUM EXTENDED 100MG CAPSULE PO SCH ×2 (09:06→20:35)
[2021-03-25] MEDS: LEVETIRACETAM 500MG TABLET PO SCH ×2 (09:06→20:35)
[2021-03-25 20:00] VITALS: BP 123/72
[2021-03-25] MEDS: FAMOTIDINE 20MG TABLET PO SCH (20:35)
[2021-03-26] VITALS: BP 117/65
[2021-03-26] MEDS: IPRATROPIUM/ALBUTEROL 0.5-3(2.5)MG/3ML NEB HHN SCH ×4 (01:32→21:07)
[2021-03-26 04:00] VITALS: BP 133/80
[2021-03-26 08:00] VITALS: BP 126/80
[2021-03-26] MEDS: LEVETIRACETAM 500MG TABLET PO SCH ×2 (08:11→20:19)
[2021-03-26] MEDS: PHENYTOIN SODIUM EXTENDED 100MG CAPSULE PO SCH ×2 (08:11→20:19)
[2021-03-26 12:00] VITALS: BP 129/75
[2021-03-26 16:00] VITALS: BP 126/70
[2021-03-26 20:00] VITALS: BP 95/47
[2021-03-26] MEDS: FAMOTIDINE 20MG TABLET PO SCH (20:19)
[2021-03-27] VITALS: BP 124/78
[2021-03-27] MEDS: IPRATROPIUM/ALBUTEROL 0.5-3(2.5)MG/3ML NEB HHN SCH ×4 (02:48→21:13)
[2021-03-27 04:00] VITALS: BP 120/80
[2021-03-27 08:00] VITALS: BP 120/84
[2021-03-27] MEDS: PHENYTOIN SODIUM EXTENDED 100MG CAPSULE PO SCH ×2 (08:57→22:20)
[2021-03-27] MEDS: LEVETIRACETAM 500MG TABLET PO SCH ×2 (08:57→22:20)
[2021-03-27 12:00] VITALS: BP 113/71
[2021-03-27 16:00] VITALS: BP 130/82
[2021-03-27 20:00] VITALS: BP 119/72
[2021-03-27] MEDS: FAMOTIDINE 20MG TABLET PO SCH (22:20)
[2021-03-28] VITALS: BP 117/77
[2021-03-28] MEDS: IPRATROPIUM/ALBUTEROL 0.5-3(2.5)MG/3ML NEB HHN SCH ×4 (01:02→16:00)
[2021-03-28 04:00] VITALS: BP 104/68
[2021-03-28 07:55] LABS: BASOPHILS % 1.1 % (0.0-2.0); EOSINOPHILS % 5.2 % (0.0-5.0); HEMATOCRIT. 30.8 % (42.0-52.0); HEMOGLOBIN. 10.4 g/dL (14.0-18.0); LYMPHOCYTES % 34.3 % (20.0-50.0); MEAN CORPUSCULAR HEMOGLOBIN 31.5 pg (28.0-32.0); MEAN CORPUSCULAR VOLUME 92.8 fL (80.0-94.0); MEAN PLATELET VOLUME 8.7 fl (7.4-10.4); MONOCYTES % 7.2 % (2.0-8.0); NEUTROPHILS % 52.2 % (40.0-76.0); PLATELET 378 x1000/uL (130-400); RED BLOOD CELL COUNT 3.32 mill/uL (4.7-6.1); RED CELL DISTRIBUTION WIDTH 15.7 % (11.6-14.6)
[2021-03-28 08:00] VITALS: BP 100/64
[2021-03-28] MEDS: PHENYTOIN SODIUM EXTENDED 100MG CAPSULE PO SCH ×2 (09:02→21:39)
[2021-03-28] MEDS: LEVETIRACETAM 500MG TABLET PO SCH ×2 (09:02→21:39)
[2021-03-28 10:20] LABS: CHLORIDE 107 mEq/L (98-107)
[2021-03-28 12:00] VITALS: BP 113/65
[2021-03-28 16:00] VITALS: BP 126/72
[2021-03-28] MEDS: ACETAMINOPHEN 650MG/20.3ML UDC NG PRN (18:59)
[2021-03-28 20:00] VITALS: BP 116/69
[2021-03-28] MEDS: FAMOTIDINE 20MG TABLET PO SCH (21:39)
[2021-03-29 08:00] VITALS: BP 132/76
[2021-03-29] MEDS: LEVETIRACETAM 500MG TABLET PO SCH ×2 (09:37→20:49)
[2021-03-29] MEDS: PHENYTOIN SODIUM EXTENDED 100MG CAPSULE PO SCH ×2 (09:37→20:49)
[2021-03-29 12:00] VITALS: BP 127/80
[2021-03-29 16:00] VITALS: BP 128/72
[2021-03-29 20:00] VITALS: BP 130/78
[2021-03-30] VITALS: BP 102/66
[2021-03-30 04:00] VITALS: BP 132/62
[2021-03-30 08:00] VITALS: BP 140/86
[2021-03-30] MEDS: LEVETIRACETAM 500MG TABLET PO SCH ×2 (08:50→21:31)
[2021-03-30] MEDS: PHENYTOIN SODIUM EXTENDED 100MG CAPSULE PO SCH ×2 (08:50→21:31)
[2021-03-30 12:00] VITALS: BP 132/84
[2021-03-30 16:01] VITALS: BP 130/79
[2021-03-30 20:00] VITALS: BP 111/74
[2021-03-31] VITALS: BP 125/86
[2021-03-31 04:00] VITALS: BP 124/77
[2021-03-31] MEDS: LEVETIRACETAM 500MG TABLET PO SCH ×2 (09:53→21:02)
[2021-03-31] MEDS: PHENYTOIN SODIUM EXTENDED 100MG CAPSULE PO SCH ×2 (09:55→21:02)
[2021-03-31 20:00] VITALS: BP 125/86
[2021-04-01] VITALS: BP 126/82
[2021-04-01 04:00] VITALS: BP 124/79
[2021-04-01 08:00] VITALS: BP_SYST 110; BP_SYST 118; BP_DIAS 75; BP_DIAS 78
[2021-04-01] MEDS: PHENYTOIN SODIUM EXTENDED 100MG CAPSULE PO SCH ×2 (09:15→21:00)
[2021-04-01] MEDS: LEVETIRACETAM 500MG TABLET PO SCH ×2 (09:15→21:00)
[2021-04-01 12:00] VITALS: BP 118/78
[2021-04-01 16:00] VITALS: BP 111/75
[2021-04-01 20:00] VITALS: BP 129/74
[2021-04-02] VITALS: BP 117/73
[2021-04-02 04:00] VITALS: BP 112/79
[2021-04-02 08:00] VITALS: BP 112/69
[2021-04-02] MEDS: PHENYTOIN SODIUM EXTENDED 100MG CAPSULE PO SCH ×2 (08:43→20:58)
[2021-04-02] MEDS: LEVETIRACETAM 500MG TABLET PO SCH ×2 (08:44→20:58)
[2021-04-02 12:00] VITALS: BP 123/84
[2021-04-02 16:00] VITALS: BP 135/74
[2021-04-02 20:37] VITALS: BP 122/84
[2021-04-03] VITALS: BP 115/85
[2021-04-03 04:00] VITALS: BP 123/80
[2021-04-03 08:00] VITALS: BP 123/75
[2021-04-03] MEDS: PHENYTOIN SODIUM EXTENDED 100MG CAPSULE PO SCH ×2 (08:29→20:26)
[2021-04-03] MEDS: LEVETIRACETAM 500MG TABLET PO SCH ×2 (08:29→20:26)
[2021-04-03 12:00] VITALS: BP 117/67
[2021-04-03 16:00] VITALS: BP 127/79
[2021-04-03] MEDS ORDERED: DIPHENHYDRAMINE 25MG CAPSULE PO NR (16:07)
[2021-04-03 20:00] VITALS: BP 135/80
[2021-04-04 04:00] VITALS: BP 134/71
[2021-04-04 08:00] VITALS: BP 121/81
[2021-04-04] MEDS: PHENYTOIN SODIUM EXTENDED 100MG CAPSULE PO SCH ×2 (08:59→20:21)
[2021-04-04] MEDS: LEVETIRACETAM 500MG TABLET PO SCH ×2 (08:59→20:21)
[2021-04-04] MEDS ORDERED: PHEN100C4 PO (09:42)
[2021-04-04] MEDS ORDERED: KEPP500 PO (09:42)
[2021-04-04 12:00] VITALS: BP 111/82
[2021-04-04 16:00] VITALS: BP 119/77
[2021-04-04 20:00] VITALS: BP 109/80
[2021-04-05] VITALS: BP 124/80
[2021-04-05 04:00] VITALS: BP 123/83
[2021-04-05 08:00] VITALS: BP 131/74
[2021-04-05] MEDS: LEVETIRACETAM 500MG TABLET PO SCH ×2 (09:18→21:24)
[2021-04-05] MEDS: PHENYTOIN SODIUM EXTENDED 100MG CAPSULE PO SCH ×2 (09:18→21:24)
[2021-04-05 12:00] VITALS: BP 121/79
[2021-04-05 16:00] VITALS: BP 132/77
[2021-04-05 20:00] VITALS: BP 106/78
[2021-04-06] VITALS: BP 121/80
[2021-04-06 04:00] VITALS: BP 133/85
[2021-04-06 08:00] VITALS: BP 126/84
[2021-04-06] MEDS: PHENYTOIN SODIUM EXTENDED 100MG CAPSULE PO SCH ×2 (08:42→21:07)
[2021-04-06] MEDS: LEVETIRACETAM 500MG TABLET PO SCH ×2 (08:42→21:07)
[2021-04-06 12:00] VITALS: BP 126/86
[2021-04-06 16:00] VITALS: BP 116/64
[2021-04-06 20:00] VITALS: BP 103/66
[2021-04-07] VITALS: BP 105/66
[2021-04-07 04:00] VITALS: BP 125/78
[2021-04-07 08:00] VITALS: BP 118/72
[2021-04-07] MEDS: PHENYTOIN SODIUM EXTENDED 100MG CAPSULE PO SCH (08:50)
[2021-04-07] MEDS: LEVETIRACETAM 500MG TABLET PO SCH (08:50)
[2021-04-07 12:00] VITALS: BP 140/90
[2021-04-07 16:00] VITALS: BP 113/77
[2021-04-07 18:29] VITALS: BP 113/77
== END 2021-04-07 19:17 | DRG 871 ==
LOC: ER 11:48 → EDBD 14:04 → MICUSO 14:04 → EDBEDREQ 14:09 → EDBEDREQTM 14:09 → MICUNO 03-05 12:30 → 3WST 03-08 18:48 → 6EST 03-20 10:53
PROVIDERS: ADMIT Family Medicine Adult Medicine; ATTEND Family Medicine Adult Medicine
PROC: 5A1945Z Respiratory Ventilation, 24-96 Consecutive Hours (ICD-10-PCS; principal; 2021-03-04)
PROC: 0BH17EZ Insertion of Endotracheal Airway into Trachea, Via Natural or Artificial Opening (ICD-10-PCS; 2021-03-04)
PROC: 4A00X4Z Measurement of Central Nervous Electrical Activity, External Approach (ICD-10-PCS; 2021-03-06)
PROC: 5A09357 Assistance with Respiratory Ventilation, Less than 24 Consecutive Hours, Continuous Positive Airway Pressure (ICD-10-PCS; 2021-03-07)
PROC: 02HV33Z Insertion of Infusion Device into Superior Vena Cava, Percutaneous Approach (ICD-10-PCS; 2021-03-10)
PROC: B5181ZA Fluoroscopy of Superior Vena Cava using Low Osmolar Contrast, Guidance (ICD-10-PCS; 2021-03-10)
PROC: B548ZZA Ultrasonography of Superior Vena Cava, Guidance (ICD-10-PCS; 2021-03-10)
DX: A41.81 Sepsis due to Enterococcus (principal); J96.01 Acute respiratory failure with hypoxia; J69.0 Pneumonitis due to inhalation of food and vomit; G93.41 Metabolic encephalopathy; E44.1 Mild protein-calorie malnutrition; E87.4 Mixed disorder of acid-base balance; E87.0 Hyperosmolality and hypernatremia; E72.20 Disorder of urea cycle metabolism, unspecified; M62.82 Rhabdomyolysis; N17.9 Acute kidney failure, unspecified; R65.20 Severe sepsis without septic shock; G40.909 Epilepsy, unspecified, not intractable, without status epilepticus; E16.2 Hypoglycemia, unspecified; Z68.28 Body mass index [BMI] 28.0-28.9, adult; F19.90 Other psychoactive substance use, unspecified, uncomplicated; Z20.822 Contact with and (suspected) exposure to COVID-19; D64.9 Anemia, unspecified; J32.0 Chronic maxillary sinusitis; R74.8 Abnormal levels of other serum enzymes; G40.901 Epilepsy, unspecified, not intractable, with status epilepticus; I10 Essential (primary) hypertension; Z78.1 Physical restraint status; Z79.899 Other long term (current) drug therapy
CPT/HCPCS: 36415; 36573; 36600; 70551; 71045; 80048; 80053; 80156; 80165; 80184; 80185; 80202; 80305; 80320; 81003; 82040; 82140; 82375; 82550; 82805; 82962; 83880; 84134; 84145; 84443; 84484; 85025; 87070; 87077; 87186; 87426; 92610; 93005; 93306; 94002; 94003; 94640; 97112; 97116; 97162; 97166; 97530; 97535; 99291; C1725; C1893; J0295; J0456; J0692; J0696; J0770; J0878; J1165; J1630; J1953; J2060; J2250; J2543; J3010; J3370; J3490; J7040; J7050; J7060; J7121; Q0163; A4315; G0480